=== PATIENT | male | born 1985 | race Caucasian/White ===

== ENCOUNTER → 2024-02-01 13:14 | Outpatient (BNVA) | payer OTHER, SELFPAY | PROVIDERS: PCP Family Medicine; Referring Provider Family Medicine; Visit Provider Specialist | DX: G24.5 Blepharospasm (principal); R76.8 Other specified abnormal immunological findings in serum; R29.90 Unspecified symptoms and signs involving the nervous system | CPT/HCPCS: 36415; 82085; 82550; 86160; 86162; 86235; 86255; 86376; 99204 ==